=== PATIENT | female | born 1985 | race Caucasian/White ===

== ENCOUNTER 2018-11-27 08:17 | Emergency (ER) | payer MEDICAID ==
[~2018-11-27] VITALS: Ht 165.1 cm; Wt 67.0 kg
[2018-11-27] MEDS ORDERED: IBUPROFEN 600MG TABLET PO ONE (09:00)
[2018-11-27 09:04] VITALS: BP 111/64
== END 2018-11-27 09:23 | disposition home or self-care (01) ==
LOC: ER 08:17
DX: H04.121 Dry eye syndrome of right lacrimal gland (principal); E11.9 Type 2 diabetes mellitus without complications
CPT/HCPCS: 99283